=== PATIENT | male | born 1975 ===

== ENCOUNTER 2020-05-21 16:30 | Emergency (ER) | payer SELFPAY ==
[~2020-05-21] VITALS: Ht 180.3 cm; Wt 90.7 kg
[~2020-05-21 16:30] MED LIST: CIPR500 PO; DOXY100 PO; HYDACE5 PO; IBUP200; IBUP800 PO; MULVITMINF; NAPR500 PO; RXHYDACE PO
== END 2020-05-21 17:10 | disposition left against medical advice (07) ==
LOC: ER 16:30
DX: Z53.21 Procedure and treatment not carried out due to patient leaving prior to being seen by health care provider (principal)